=== PATIENT | male | born 1980 | race Caucasian/White ===

== ENCOUNTER 2017-01-03 00:03 | Emergency (ER) | payer MEDICAID, OTHER ==
[~2017-01-03] VITALS: Ht 167.6 cm; Wt 91.0 kg
[2017-01-03 00:08] VITALS: Ht 167.6 cm; Wt 91.0 kg
[2017-01-03] MEDS ORDERED: LORAZEPAM 1 MG TAB PO ONE (02:00)
[2017-01-03] MEDS ORDERED: LORA1TAB PO (02:25)
--- NOTE | 2017-01-03 02:28 | ERD ---
ER Documentation Chief Complaint Chief Complaint bib self, cc: discomfort and numbness in hands, "panic attack" HPI 36-year-old male who is otherwise healthy presents complaining of feeling a warm sensation in his chest that lasted a couple seconds and then it went away. He also states he felt some numbness and tingling in his upper and lower extremities. At this time he is asymptomatic and he has no pain. Denies any drugs or alcohol or smoking. No cardiac past medical history. No nausea or vomiting. No chest pain. ROS All systems reviewed and are negative except as per history of present illness. Medications Home Meds Active Scripts Lorazepam* (Lorazepam*) 1 Mg Tablet, 1 MG PO Q8, #10 TAB Prov:CLARISSA WASSERMAN PA-C 01/03/17 Allergies Allergies: Coded Allergies: No Known Allergy (Unverified , 01/03/17) PMhx/Soc Medical and Surgical Hx: pt denies Medical Hx, pt denies Surgical Hx History of Surgery: No Anesthesia Reaction: No Hx Neurological Disorder: No Hx Respiratory Disorders: No Hx Cardiac Disorders: No Hx Psychiatric Problems: No Hx Miscellaneous Medical Probl: No Hx Alcohol Use: No Hx Substance Use: No Hx Tobacco Use: No FmHx Family History: No diabetes Physical Exam Vitals Vital Signs Date Time Temp Pulse Resp B/P Pulse Ox O2 Delivery O2 Flow Rate FiO2 01/03/17 00:08 98.6 93 18 146/96 100 Physical Exam INITIAL VITAL SIGNS: Reviewed by me GENERAL: Awake, alert and oriented x 4, well appearing, nontoxic, speaking in full sentences. No acute distress HEAD: Atraumatic NECK: Supple. No masses. Full range of motion. No meningismus. No midline tenderness. EYES: EOMI. PERRL. RESPIRATORY: Clear to auscultation bilaterally. Symmetric chest wall rise. No wheezing or rales. No accessory muscle use. CV: Regular rate and rhythm. No murmurs, rubs, or gallops. Results 24 hrs Laboratory Tests Test 01/03/17 02:16 Bedside Glucose 100mg/dL Current Medications Medications (Trade) Dose Ordered Sig/Edgar Route PRN Reason Start Time Stop Time Status Last Admin Dose Admin Lorazepam (Ativan) 1 mg ONCE ONCE PO 01/03/17 02:00 01/03/17 02:01 DC Procedures/MDM Patient presents with what is most likely an anxiety reaction. The differential diagnosis includes but is not limited to acute coronary syndrome acute myocardial infarction, pericarditis, pulmonary embolism, aortic dissection , pneumonia, pleural effusion, pneumothorax, GERD, chest wall pain, and others. He has mildly elevated blood pressure 146/96 otherwise vital signs are within normal limits. EKG was normal sinus rhythm with a rate of 71 with no evidence of ST elevation or acute ischemic changes. He has no symptoms or pain at this time. I offered him Ativan but he declined. Accu-Chek was 100. Patient discharged a small amount of Ativan he has been asymptomatic throughout his whole time here. Low suspicion for any cardiac etiology for his symptoms. Patient counseled regarding my diagnostic impression and care plan. Prior to discharge all questions answered. Pt agrees with treatment plan and understands strict return precautions. Pt is instructed to follow up with primary care provider within 24-48 hours. Precautionary instructions provided including instructions to return to the ER if not improving or for any worsening or changing symptoms or concerns. Departure Diagnosis: Primary Impression: Anxiety Condition: Stable Patient Instructions: Anxiety Reaction Additional Instructions: Call your primary care doctor TOMORROW for an appointment during the next 1-2 days.See the doctor sooner or return here if your condition worsens before your appointment time. CLARISSA WASSERMAN PA-C Jan 03, 2017 02:28
== END 2017-01-03 02:43 | disposition home or self-care (01) ==
LOC: FTE 00:03
DX: F41.9 Anxiety disorder, unspecified (principal); R07.89 Other chest pain
CPT/HCPCS: 82962; 93005; Z7502

== ENCOUNTER 2017-03-18 18:19 | Emergency (ER) | END 2017-03-18 20:30 | disposition home or self-care (01) ==